=== PATIENT | female | born 1950 | race Caucasian/White ===

== ENCOUNTER 2016-09-30 14:54 | Emergency (ER) | payer MEDICARE, OTHER ==
[2016-09-30 15:33] LABS: BILIRUBIN NEGATIVE (NEGATIVE); BLOOD NEGATIVE Ery/uL (NEGATIVE); CLARITY CLEAR (CLEAR); COLOR YELLOW (YELLOW); GLUCOSE (U) 2+ mg/dL (NORMAL); KETONE (U) NEGATIVE (NEGATIVE); LEUKOCYTES NEGATIVE Leu/uL (NEGATIVE); NITRITE NEGATIVE (NEGATIVE); PROTEIN NEGATIVE (NEGATIVE); SPECIFIC GRAVITY 1.015 (1.001-1.030); UROBILINOGEN 0.2 mg/dL (0.2-1.0); pH 5.5 (5.0-9.0)
[2016-09-30 15:46] LABS: BASOPHIL 0.3 % (0-2); EOSINOPHIL 1.2 % (0-7); HCT 37.6 % (37.0-47.0); HGB 12.9 g/dl (12.5-16.0); LYMPHOCYTE 29.1 % (15-48); MCH 28.7 pg (25.0-31.0); MCHC 34.3 g/dL (32.0-36.0); MCV 83.6 fL (78.0-100.0); MONOCYTE 8.4 % (0-12); MPV 10.7 fL (6.0-9.5); PLT 247 K/uL (150-400); RDW 13.7 % (11.5-14.0); WBC 6.6 K/uL (4.0-10.5)
[2016-09-30 16:02] LABS: ALBUMIN 3.8 g/dL (3.4-4.8); BILIRUBIN - TOTAL 0.5 mg/dL (0.1-1.0); CREATININE 0.9 mg/dL (0.5-1.0); GLOBULIN (CALCULATION) 2.8 g/dL (2.2-4.2); PHOSPHORUS 3.2 mg/dL (2.7-4.5); POTASSIUM 4.2 mmol/L (3.5-5.1); TOTAL PROTEIN 6.6 g/dL (6.4-8.3)
== END 2016-09-30 17:10 | disposition home or self-care (01) ==
LOC: FER 14:54
PROVIDERS: Emergency Medicine
DX: M62.830 Muscle spasm of back (principal); R11.2 Nausea with vomiting, unspecified; R19.7 Diarrhea, unspecified; E11.9 Type 2 diabetes mellitus without complications; I10 Essential (primary) hypertension; E78.5 Hyperlipidemia, unspecified; E03.9 Hypothyroidism, unspecified; Z79.84 Long term (current) use of oral hypoglycemic drugs; Z79.4 Long term (current) use of insulin; Z79.899 Other long term (current) drug therapy
CPT/HCPCS: 36415; 80053; 81003; 84100; 85025; 85379; 99284

== ENCOUNTER 2021-06-01 13:04 | Emergency (ER) | payer MEDICARE, OTHER ==
[~2021-06-01 13:04] MED LIST: CLONAZEPAM0.5 MG PO; GLIMEPIRIDE1 MG PO; GLUCOPHAGE1000 MG PO; HUMALOG MI100 UNIT/3 SC; KLONOPIN0.5 MG PO; LAXATIVE SUPPOS10 MG PR; LEXAPRO20 MG PO; LOVASTATIN20 MG PO; MILK OF MA400 MG/5 M PO; PERCOCET 5-3251 EACH PO; SYNTHROID100 MCG PO; TENORMIN50 MG PO; TOPAMAX25 MG PO; TOUJEO MAX300 UNIT/1 SC; TRULICITY0.75 MG/0. SC; WELLBUTRIN75 MG PO; XARELTO10 MG PO; ZYRTEC10 MG PO
[2021-06-01 13:49] LABS: BASOPHIL 1.1 % (0-2); EOSINOPHIL 1.8 % (0-7); HCT 42.1 % (37.0-47.0); LYMPHOCYTE 28.4 % (15-48); MCH 28.3 pg (25.0-31.0); MCHC 33.3 g/dL (32.0-36.0); MCV 85.2 fL (78.0-100.0); MONOCYTE 7.3 % (0-12); MPV 11.5 fL (6.0-9.5); NEUTROPHIL 61.1 % (41-80); NRBC 0; PLT 287 K/uL (150-400); RBC 4.94 M/uL (4.20-5.40); RDW 13.2 % (11.5-14.0); WBC 6.6 K/uL (4.0-10.5)
[2021-06-01 14:10] LABS: INR 0.97 (0.9-1.2); PROTHROMBIN TIME 12.3 SECONDS (11.8-13.4); PTT 26.3 SECONDS (24.4-34.7)
[2021-06-01 14:12] LABS: D-DIMER 0.5 ug/mLFEU (0.00-0.41)
[2021-06-01 14:15] LABS: ALBUMIN 3.7 g/dL (3.4-5.0); BILIRUBIN - TOTAL 0.5 mg/dL (0.2-1.0); BUN/CREAT RATIO (CALC) 15.9 RATIO; CREATININE 1.07 mg/dL (0.51-0.95); GLOBULIN (CALCULATION) 3.5 g/dL; LACTIC ACID 1.8 mmol/L (0.4-1.9); POTASSIUM 4.4 mmol/L (3.5-5.1); TOTAL PROTEIN 7.2 g/dL (6.4-8.2)
[2021-06-01 14:28] LABS: CORONAVIRUS 2019 SARS-COV-2 NEGATIVE (NEGATIVE); INFLUENZA A NAA NEGATIVE (NEGATIVE)
== END 2021-06-01 15:55 | disposition home or self-care (01) ==
LOC: FER 13:04
PROVIDERS: Nurse Practitioner Family
DX: R06.00 Dyspnea, unspecified (principal); E11.9 Type 2 diabetes mellitus without complications; Z20.822 Contact with and (suspected) exposure to COVID-19
CPT/HCPCS: 36415; 36600; 71275; 80053; 82803; 83605; 83880; 84145; 84484; 85025; 85379; 85610; 85730; 93005; J7030; Q9967; U0002

== ENCOUNTER 2022-01-08 08:45 | Emergency (ER) | payer OTHER ==
[2022-01-08 09:37] LABS: BASOPHIL 0.6 % (0-2); EOSINOPHIL 1.6 % (0-7); HCT 38.4 % (37.0-47.0); HGB 12.7 g/dl (12.5-16.0); LYMPHOCYTE 24.3 % (15-48); MCH 28.7 pg (25.0-31.0); MCHC 33.1 g/dL (32.0-36.0); MCV 86.9 fL (78.0-100.0); MONOCYTE 7.8 % (0-12); MPV 10.5 fL (6.0-9.5); NEUTROPHIL 65.4 % (41-80); NRBC 0; PLT 255 K/uL (150-400); RBC 4.42 M/uL (4.20-5.40); RDW 13.1 % (11.5-14.0); WBC 6.7 K/uL (4.0-10.5)
[2022-01-08 09:42] LABS: PROTHROMBIN TIME 12.9 SECONDS (11.9-13.9); PTT 29.3 SECONDS (24.9-34.6)
[2022-01-08 09:51] LABS: BILIRUBIN NEGATIVE (NEGATIVE); BLOOD NEGATIVE Ery/uL (NEGATIVE); CLARITY CLEAR (CLEAR); COLOR YELLOW (YELLOW); GLUCOSE (U) TRACE mg/dL (NORMAL); LEUKOCYTES NEGATIVE Leu/uL (NEGATIVE); NITRITE NEGATIVE (NEGATIVE); PROTEIN TRACE (LOW) mg/dL (NEGATIVE); SPECIFIC GRAVITY 1.025 (1.001-1.030); UROBILINOGEN 0.2 mg/dL (0.2-1.0)
[2022-01-08 09:56] LABS: URINARY WBC RARE
[2022-01-08 09:57] LABS: ALBUMIN 3.3 g/dL (3.4-5.0); BILIRUBIN - TOTAL 0.6 mg/dL (0.2-1.0); BUN/CREAT RATIO (CALC) 19.2 RATIO; CREATININE 0.99 mg/dL (0.51-0.95); GLOBULIN (CALCULATION) 3.4 g/dL; MAGNESIUM 1.4 mg/dL (1.8-2.4); POTASSIUM 3.7 mmol/L (3.5-5.1); TOTAL PROTEIN 6.7 g/dL (6.4-8.2)
[2022-01-08 10:30] LABS: LACTIC ACID 1.1 mmol/L (0.4-1.9)
[2022-01-08] MEDS ORDERED: PROMETHEGA12.5 MG/SU PR (13:03)
[2022-01-08] MEDS ORDERED: PEPCID AC20 MG PO (13:03)
[2022-01-08] MEDS ORDERED: ONDANSETRON ODT4 MG PO (13:03)
== END 2022-01-08 13:13 | disposition home or self-care (01) ==
LOC: FER 08:45
PROVIDERS: Emergency Medicine
DX: K21.9 Gastro-esophageal reflux disease without esophagitis (principal); R07.9 Chest pain, unspecified; R11.2 Nausea with vomiting, unspecified; I10 Essential (primary) hypertension; E11.9 Type 2 diabetes mellitus without complications; Z90.49 Acquired absence of other specified parts of digestive tract; Z20.822 Contact with and (suspected) exposure to COVID-19
CPT/HCPCS: 36415; 70450; 71045; 80053; 81001; 83605; 83735; 83880; 84484; 85025; 85610; 85730; 87040; 93005; J1885; J2270; J2405; J2550; J3475; Q9967; U0002